=== PATIENT | male | born 1955 | race Caucasian/White ===

== ENCOUNTER → 2017-11-22 | Outpatient (CLI) | payer OTHER ==
[2016-02-01 16:39] VITALS: BMI 41.0
[~2017-11-22] MED LIST: ADV100/50 INH; ADV250/50 INH; ALB17R INH; ALB18R INH; ALB6.7R INH; ASPI-764 PO; AUG500 PO; AZI250 PO; BACL-1 PO; BENZ100C26 PO; CEP500 PO; CICL6.1H7 IH; CYC10 PO; CYCL10TA29 PO; DEPRESSION MED PO; DIAZ-1 PO; DICL-195 PO; DOCU-416 PO; DUL30 PO; DULERAPT INH; DULO60CA56 PO; ENO40I SQ; ESC10 PO; ESZO2TAB30 PO; FEXO180T74 PO; FEXO30OR2 PO; FEXO30TA36 PO; FLU220R INH; FLUT12HF2 IH; GABA-490 PO; GUAI-225 PO; HYDR-2966 PO; HYDR-318 PO; HYDR-385 PO; IBU800 PO; IBUP-56 PO; KET10 PO; LEVO50TA80 PO; LEVO75TA73 PO; LOM PO; LOR5 PO; LOR5/325 PO; LOR75 PO; MET10 PO; METH4TAB57 PO; MON10 PO; MONT10TA PO; NOR10 PO; NORT10SO PO; OMEP20CA68 PO; ONDA4TAB PO; OXYC-865 PO; PANT40TA65 PO; PER PO; PRAV40TA78 PO; PRE5 PO; PROM5SYR PO; RIV10 PO; TAMS0.4C70 PO; THYROID MED PO; TRAM-420 PO; TRAM100T21 PO; cholesterol pill
--- NOTE | 2017-11-22 10:43 | EKG ---
FACILITY: [facility] [place] PATIENT NAME: STEPHANIE MARTINEZ : [id number] MR: [id number] V: [id number] EXAM DATE: ORDERING PHYSICIAN: THADDEUS JONES TECHNOLOGIST: Marquise Oswald Reason : PREOP Blood Pressure : / mmHG Vent. Rate : 098 BPM Atrial Rate : 098 BPM P-R Int : 142 ms QRS Dur : 090 ms QT Int : 354 ms P-R-T Axes : 066 021 035 degrees QTc Int : 451 ms Normal sinus rhythm Normal ECG When compared with ECG of 18-SEP-2016 15:11, No significant change was found Confirmed by MICHELLE KIDD ([id number]) on 11/22/2017 1:35:34 PM Referred By: ROBERT Confirmed By:MICHELLE KIDD
== END ==
LOC: CARD 10:20
PROVIDERS: ATTEND Anesthesiology
DX: Z01.810 Encounter for preprocedural cardiovascular examination (principal); S43.431A Superior glenoid labrum lesion of right shoulder, initial encounter
CPT/HCPCS: 93005

== ENCOUNTER 2017-12-11 11:35 | Emergency (ER) | payer OTHER ==
[2016-02-01 16:39] VITALS: Wt 122.5 kg
[2017-12-11] MEDS ORDERED: GABA-549 PO (11:59)
--- NOTE | 2017-12-11 11:59 | ER Report ---
History and Physical Time Seen By MD: 11:55 Hx. of Stated Complaint: pt had shoulder surgery on . Has had a h/a since that time. Also notes L jaw pain. States it is getting worse. Does have some dental issues . Denies cp, sob HPI/ROS CHIEF COMPLAINT: Jaw pain HISTORY OF PRESENT ILLNESS: 63-year-old male returns emergency Department today with a complaint of jaw pain. Patient is been here before for an diagnosed with TMJ. Patient states that the pain is been coming and going a little worse today' s had this for approximate 4 years was on gabapentin last time which had some relief patient no longer taking it he is on pain medication for bicipital tear no additional complaints REVIEW OF SYSTEMS: Respiratory: No cough, no dyspnea. Cardiovascular: No chest pain, no palpitations. Gastrointestinal: No vomiting, no abdominal pain. Musculoskeletal: No back pain. Remainder of the 14 system rev: Yes Allergies: Coded Allergies: Sulfa (Sulfonamide Antibiotics) (Verified Allergy, Intermediate, hives, 12/11/17) nut - unspecified (Verified Allergy, Unknown, 12/11/17) watermelon (Verified Allergy, Unknown, 12/11/17) Home Meds Active Scripts Hydrocodone Bit/Acetaminophen (HYDROCODON-ACETAMINOPHEN 5-325) 1 Each Tablet, 1- 2 EACH PO Q6H, #30 TAB Prov:JAMIR LICONA 06/05/17 Reported Medications Ibuprofen (IBUPROFEN) 200 Mg Tablet, 4 TAB PO TID Y for PAIN, TAB 01/24/16 Nortriptyline Hcl (NORTRIPTYLINE HCL) 10 Mg Cap, 30 MG PO HS, CAP 11/04/15 Levothyroxine Sodium (LEVOTHYROXINE SODIUM) 75 Mcg Tablet, 75 MCG PO QDAY, TAB 11/04/15 Pantoprazole Sodium (PANTOPRAZOLE SODIUM) 40 Mg Tablet.dr, 40 MG PO BID, TAB.SR 05/01/13 Pravastatin Sodium (PRAVASTATIN SODIUM) 40 Mg Tablet, 40 MG PO HS 02/20/13 Montelukast Sodium (SINGULAIR) 10 Mg Tablet, 1 TAB PO QDAY TAKE ONE TABLET BY MOUTH EVERY DAY 02/20/13 Duloxetine Hcl (CYMBALTA) 60 Mg Capsule.dr, 60 MG PO QAM 02/20/13 Mometasone/Formoterol (DULERA 200 MCG/5 MCG INHALER) 13 Gm Inh, 2 PUFF INH BID 02/20/13 Discontinued Reported Medications Baclofen (BACLOFEN) 10 Mg Tablet, 10 MG PO TID, TAB 10/31/16 Discontinued Scripts Cyclobenzaprine Hcl (CYCLOBENZAPRINE HCL) 10 Mg Tablet, 5-10 MG PO TID Y for MUSCLE SPASMS, #15 TAB Prov:JAMIR LICONA LI-Hiren 06/05/17 Reviewed Nurses Notes: Yes Old Medical Records Reviewed: Yes Hx Smoking: No Smoking Status: Never Smoker Hx Substance Use Disorder: No Hx Alcohol Use: Yes (RARELY) Constitutional Vital Sign - Last 24 Hours 12/11/17 11:39 Temp 97.7 Pulse 84 Resp 20 Pulse Ox 92 O2 Delivery Room Air Physical Exam General appearance: Alert no distress. Respiratory: Chest is non tender, lungs are clear to auscultation. Cardiac: Regular rate and rhythm [ ] Jaw evaluation patient with some mild tenderness to palpation of the anterior part of the TMJ no clicking no abnormal tracking otherwise unremarkable pain reproducible DIFFERENTIAL DIAGNOSIS: After history and physical exam differential diagnosis was considered for TMJ Medical Decision Making ED Course/Re-evaluation ED Course Clinical course medical decision making 62-year-old male comes emergency room with obvious TMJ discomfort consistent with his prior presentations was started on gabapentin and ENT follow-up negative examination Decision to Disposition Date: Dec 11, 2017 Decision to Disposition Time: 11:58 Depart Departure Latest Vital Signs Vital Signs Date Time Temp Pulse Resp B/P (MAP) Pulse Ox O2 Delivery O2 Flow Rate FiO2 12/11/17 11:39 97.7 84 20 92 Room Air Impression: Primary Impression: TMJ (temporomandibular joint disorder) Condition: Condition Unchanged Disposition: HOME OR SELF-CARE Referrals: ART MORALES (PCP) CHRISTINA JOHNSON JR, MD 10 Days New Scripts Gabapentin (GABAPENTIN) 300 Mg Capsule 600 MG PO TID for 10 Days, #30 CAPSULE Prov: NEGRO SANTANA MD 12/11/17 Patient Instructions: Arthroscopic TMJ Procedure (DC) NEGRO SANTANA MD Dec 11, 2017 11:59
[2017-12-11 12:06] VITALS: BP 137/93
== END 2017-12-11 12:06 | disposition home or self-care (01) ==
LOC: ER 12:01
DX: M26.609 Unspecified temporomandibular joint disorder, unspecified side (principal)
CPT/HCPCS: 99283

== ENCOUNTER → 2018-02-26 | Outpatient (CLI) | payer OTHER ==
[2016-02-01 16:39] VITALS: BMI 41.0
[~2018-02-26] MED LIST changes: +GABA-549 PO
== END ==
LOC: LAB 14:46
PROVIDERS: ATTEND Nurse Practitioner Family
DX: E87.8 Other disorders of electrolyte and fluid balance, not elsewhere classified (principal); R73.01 Impaired fasting glucose; R53.81 Other malaise
CPT/HCPCS: 36415; 82040; 82247; 82310; 82374; 82435; 82565; 82947; 83036; 84075; 84132; 84155; 84295; 84443; 84450; 84460; 84520

== ENCOUNTER 2018-06-26 08:48 | Emergency (ER) | payer OTHER ==
[2016-02-01 16:39] VITALS: Wt 117.9 kg
[~2018-06-26 08:48] MED LIST changes: -LOSA100T69 PO; -METF-452 PO
--- NOTE | 2018-06-26 08:51 | ER Report ---
History and Physical Time Seen By MD: 09:12 HPI/ROS CHIEF COMPLAINT: Fall with head injury HISTORY OF PRESENT ILLNESS: Patient is a 62-year-old male who was loading furniture onto the bed of a 18 [employer] truck when his legs got tangled and he fell backwards striking his head. He denies any loss of consciousness but does report headache. He denies any neck pain or numbness or tingling to any extremities. He does complain of pain to the left shoulder but is able to range it. Also complains of left hip pain and again is able to range the hip. He denies any chest pain or shortness of breath denies any abdominal pain, nausea vomiting or diarrhea. Patient denies that he is taking any blood thinners at this time. REVIEW OF SYSTEMS: Respiratory: No cough, no dyspnea. Cardiovascular: No chest pain, no palpitations. Gastrointestinal: No vomiting, no abdominal pain. Musculoskeletal: Left shoulder, left hip pain Neurological: Headache Allergies: Coded Allergies: Sulfa (Sulfonamide Antibiotics) (Verified Allergy, Intermediate, hives, 06/26/18) nut - unspecified (Verified Allergy, Unknown, 06/26/18) watermelon (Verified Allergy, Unknown, 06/26/18) Home Meds Reported Medications Albuterol Sulfate (VENTOLIN HFA) 18 Gm Inh, 1-2 PUFF INH 3-4XD, INH 06/26/18 Losartan Potassium (LOSARTAN POTASSIUM) 100 Mg Tablet, 100 MG PO QDAY 06/26/18 Gabapentin (GABAPENTIN) 300 Mg Capsule, 300 MG PO DAILY, CAPSULE 06/26/18 Metformin Hcl (METFORMIN HCL) 1,000 Mg Tablet, 1 TAB PO QDAY, TAB 06/26/18 Levothyroxine Sodium (LEVOTHYROXINE SODIUM) 75 Mcg Tablet, 88 MCG PO QDAY, TAB 06/26/18 Nortriptyline Hcl (NORTRIPTYLINE HCL) 10 Mg Cap, 30 MG PO HS, CAP 11/04/15 Pantoprazole Sodium (PANTOPRAZOLE SODIUM) 40 Mg Tablet.dr, 40 MG PO BID, TAB.SR 05/01/13 Pravastatin Sodium (PRAVASTATIN SODIUM) 40 Mg Tablet, 40 MG PO HS 02/20/13 Montelukast Sodium (SINGULAIR) 10 Mg Tablet, 1 TAB PO QDAY TAKE ONE TABLET BY MOUTH EVERY DAY 6/14/13 Duloxetine Hcl (CYMBALTA) 60 Mg Capsule.dr, 60 MG PO QAM 02/20/13 Mometasone/Formoterol (DULERA 200 MCG/5 MCG INHALER) 13 Gm Inh, 2 PUFF INH BID 02/20/13 Discontinued Reported Medications Ibuprofen (IBUPROFEN) 200 Mg Tablet, 4 TAB PO TID PRN for PAIN, TAB 01/24/16 Levothyroxine Sodium (LEVOTHYROXINE SODIUM) 75 Mcg Tablet, 75 MCG PO QDAY, TAB 11/04/15 Discontinued Scripts Gabapentin (GABAPENTIN) 300 Mg Capsule, 600 MG PO TID for 10 Days, #30 CAPSULE Prov:NEGRO SANTANA MD 12/11/17 Hydrocodone Bit/Acetaminophen (HYDROCODON-ACETAMINOPHEN 5-325) 1 Each Tablet, 1- 2 EACH PO Q6H, #30 TAB Prov:JAMIR LICONA 06/05/17 Past Medical/Surgical History Past medical history significant for hypothyroidism, gastroesophageal reflux disease, hypercholesterolemia, reactive airways disease Hx Smoking: No Smoking Status: Never Smoker Hx Substance Use Disorder: No Hx Alcohol Use: Yes (RARELY) Constitutional Vital Sign - Last 24 Hours 06/26/18 06/26/18 06/26/18 06/26/18 08:54 08:55 09:03 09:18 Temp 98.1 Pulse 87 86 81 Resp 16 B/P (MAP) 147/83 (104) 147/83 Pulse Ox 94 94 93 O2 Delivery Room Air 06/26/18 06/26/18 06/26/18 06/26/18 09:48 09:53 10:08 10:13 Pulse 83 84 86 78 Pulse Ox 96 95 96 95 06/26/18 10:28 Pulse 79 Resp 16 B/P (MAP) 138/68 (91) Pulse Ox 95 Physical Exam General Appearance: The patient is alert, has no immediate need for airway protection and no signs of toxicity. Eyes: Pupils equal and round no pallor or injection. ENT, Mouth: Mucous membranes are moist. Cervical spine cleared using Nexus criteria and normal range of motion without pain in all axial directions and rotation Respiratory: There are no retractions, lungs are clear to auscultation. Cardiovascular: Regular rate and rhythm. Gastrointestinal: Abdomen is soft and non tender, no masses, bowel sounds normal. Neurological: GCS is 15, awake alert no numbness or tingling noted Skin: Warm and dry, no rashes. Musculoskeletal: Neck is supple non tender. Extremities are nontender, nonswollen and have full range of motion. Medical Decision Making EKG/Imaging Imaging FACILITY: [facility] [place] PATIENT NAME: Roscoe Santiago : 1955 MR: [id number] V: [id number] EXAM DATE: ORDERING PHYSICIAN: VIVIAN JONES TECHNOLOGIST: [facility] Patient: Roscoe Santiago : 1955 Visit/Account:[id number] Date of Sevice: 06/26/2018 Exam type: HIP LEFT History: fall Comparison: None. Findings: Two views of the left hip demonstrates no evidence of acute fracture or dislocation. No significant arthritic change identified in the hip joints. IMPRESSION: 1. Two views the left hip demonstrate no evidence of acute fracture or dislocation Report Dictated By: Yumiko Hdez MD at 06/26/2018 10:06 AM Report E-Signed By: Yumiko Hdez MD at 06/26/2018 10:07 AM WSN:[email or web address] FACILITY: [facility] [place] PATIENT NAME: Roscoe Santiago : 1955 MR: [id number] V: [id number] EXAM DATE: [id number] ORDERING PHYSICIAN: VIVIAN JONES TECHNOLOGIST: [facility] Patient: Roscoe Santiago : 1955 Visit/Account:[id number] Date of Sevice: 06/26/2018 EXAMINATION: CT Head without intravenous contrast HISTORY: Trauma. TECHNIQUE: Axial images were obtained from the skull base to the vertex without intravenous contrast. Sagittal and coronal reformatted images are also submitted. One of the following dose optimization techniques was utilized in the performance of this exam: Automated exposure control; adjustment of the mA and/or kV according to the patient's size; or use of an iterative reconstruction technique. Specific details can be referenced in the facility's radiology CT exam operational policy. COMPARISON: Brain MRI dated 10/29/2016. Noncontrast head CT dated 05/26/2014. FINDINGS: Brain volume: Normal. Ventricles: Negative. Acute ischemic changes: None. Hemorrhage: None. Masses / edema: None. Parrish-white: Negative. White matter: Negative. Vessels: Carotid siphon calcifications. Normal density in the dural venous sinuses. Extra-axial: Negative. Calvarium / skull base: Negative. Visualized sinuses / orbits: Postop endoscopic sinus surgery with mild to moderate mucosal thickening in the ethmoid cavities and maxillary sinuses. Multiple cavities and periapical lucencies in the maxillary teeth. IMPRESSION: 1. No acute intracranial abnormality. 2. Postop endoscopic sinus surgery with mild to moderate mucosal thickening in the ethmoid cavities and maxillary sinuses. 3. Multiple cavities and periapical lucencies in the maxillary teeth. Report Dictated By: Gavin Gary MD at 06/26/2018 9:52 AM Report E-Signed By: Gavin Gary MD at 06/26/2018 9:57 AM WSN:[email or web address] FACILITY: [facility] [place] PATIENT NAME: Roscoe Santiago : 1955 MR: [id number] V: [id number] EXAM DATE: [id number] ORDERING PHYSICIAN: VIVIAN JONES TECHNOLOGIST: [facility] Patient: Roscoe Santiago : 1955 Visit/Account:[id number] Date of Sevice: 06/26/2018 Exam type: SHOULDER MIN 2 VIEWS LEFT History: fall Comparison: None. Findings: Two views of the left shoulder demonstrate no evidence of acute fracture or dislocation. There is no evidence of a left AC joint separation. IMPRESSION: 1. Two views left shoulder reveal no evidence of acute fracture or dislocation Report Dictated By: Yumiko Hdez MD at 06/26/2018 10:05 AM Report E-Signed By: Yumiko Hdez MD at 06/26/2018 10:06 AM WSN:[email or web address] Ankle XR-Neg ED Course/Re-evaluation ED Course 06/26/2018 9:43:39 am At this time will be to CT the head we will also x-ray left hip and left shoulder. Patient was offered pain medication but he refused at this time. Decision to Disposition Date: Jun 26, 2018 Decision to Disposition Time: 10:35 Depart Departure Latest Vital Signs Vital Signs Date Time Temp Pulse Resp B/P (MAP) Pulse Ox O2 Delivery O2 Flow Rate FiO2 06/26/18 10:28 79 16 138/68 (91) 95 06/26/18 08:55 98.1 Room Air Impression: Primary Impression: Head injury Condition: Improved Disposition: HOME OR SELF-CARE Referrals: ART MORALES (PCP) For your next routine health maintenance exam Patient Instructions: Head Injury (DC) Problem Qualifiers Primary Impression: Head injury Encounter type: initial encounter Qualified Codes: S09.90XA - Unspecified injury of head, initial encounter VIVIAN JONES MD Jun 26, 2018 08:51
[2018-06-26] MEDS ORDERED: METF-452 PO (09:01)
[2018-06-26] MEDS ORDERED: LEVO75TA73 PO (09:01)
[2018-06-26] MEDS ORDERED: LOSA100T69 PO (09:01)
[2018-06-26] MEDS ORDERED: ALB18R INH (09:01)
[2018-06-26] MEDS ORDERED: GABA-549 PO (09:01)
--- NOTE | 2018-06-26 10:01 | RADIOLOGY IMAGING REPORT ---
FACILITY: [facility] PATIENT NAME: Roscoe Santiago : 1955 MR: [id number] V: [id number] EXAM DATE: ORDERING PHYSICIAN: VIVIAN JONES TECHNOLOGIST: [facility] Patient: Roscoe Santiago : 1955 Visit/Account:[id number] Date of Sevice: 06/26/2018 EXAMINATION: CT Head without intravenous contrast HISTORY: Trauma. TECHNIQUE: Axial images were obtained from the skull base to the vertex without intravenous contrast . Sagittal and coronal reformatted images are also submitted. One of the following dose optimization techniques was utilized in the performance of this exam: Autom ated exposure control; adjustment of the mA and/or kV according to the patient's size; or use of an i terative reconstruction technique. Specific details can be referenced in the facility's radiology C T exam operational policy. COMPARISON: Brain MRI dated 10/29/2016. Noncontrast head CT dated 05/26/2014. FINDINGS: Brain volume: Normal. Ventricles: Negative. Acute ischemic changes: None. Hemorrhage: None. Masses / edema: None. Parrish-white: Negative. White matter: Negative. Vessels: Carotid siphon calcifications. Normal density in the dural venous sinuses. Extra-axial: Negative. Calvarium / skull base: Negative. Visualized sinuses / orbits: Postop endoscopic sinus surgery with mild to moderate mucosal thickenin g in the ethmoid cavities and maxillary sinuses. Multiple cavities and periapical lucencies in the ma xillary teeth. IMPRESSION: 1. No acute intracranial abnormality. 2. Postop endoscopic sinus surgery with mild to moderate mucosal thickening in the ethmoid cavities a nd maxillary sinuses. 3. Multiple cavities and periapical lucencies in the maxillary teeth. Report Dictated By: Gavin Gary MD at 06/26/2018 9:52 AM Report E-Signed By: Gavin Gary MD at 06/26/2018 9:57 AM WSN:[email or web address]
--- NOTE | 2018-06-26 10:10 | RADIOLOGY IMAGING REPORT ---
[place] [facility] [place]: Roscoe Santiago : 1955 MR: [id number] V: [id number] EXAM DATE: ORDERING PHYSICIAN: VIVIAN JONES TECHNOLOGIST: Location: [facility] Patient: Roscoe Santiago : 1955 Visit/Account:[id number] Date of Sevice: 06/26/2018 Exam type: SHOULDER MIN 2 VIEWS LEFT History: fall Comparison: None. Findings: Two views of the left shoulder demonstrate no evidence of acute fracture or dislocation. There is no evidence of a left AC joint separation. IMPRESSION: 1. Two views left shoulder reveal no evidence of acute fracture or dislocation Report Dictated By: Yumiko Hdez MD at 06/26/2018 10:05 AM Report E-Signed By: Yumiko Hdez MD at 06/26/2018 10:06 AM WSN:[email or web address]
--- NOTE | 2018-06-26 10:11 | RADIOLOGY IMAGING REPORT ---
FACILITY: [facility] PATIENT NAME: Roscoe Santiago : 1955 MR: [id number] V: [id number] EXAM DATE: ORDERING PHYSICIAN: VIVIAN JONES TECHNOLOGIST: Location: [facility] [place] Patient: Roscoe Santiago : 1955 Visit/Account:[id number] Date of Sevice: 06/26/2018 Exam type: HIP LEFT History: fall Comparison: None. Findings: Two views of the left hip demonstrates no evidence of acute fracture or dislocation. No significant arthritic change identified in the hip joints. IMPRESSION: 1. Two views the left hip demonstrate no evidence of acute fracture or dislocation Report Dictated By: Yumiko Hdez MD at 06/26/2018 10:06 AM Report E-Signed By: Yumiko Hdez MD at 06/26/2018 10:07 AM WSN:[email or web address]
[2018-06-26 10:28] VITALS: BP 138/68
--- NOTE | 2018-06-26 10:31 | RADIOLOGY IMAGING REPORT ---
FACILITY: [facility] PATIENT NAME: Roscoe Santiago : 1955 MR: [id number] V: [id number] EXAM DATE: ORDERING PHYSICIAN: VIVIAN JONES TECHNOLOGIST: Location: [facility] Patient: Roscoe Santiago : 1955 Visit/Account:[id number] Date of Sevice: 06/26/2018 Exam type: ANKLE 3 VIEW MIN LEFT History: Left ankle pain status post fall Comparison: Right ankle April 10, 2015 and left ankle February 08, 2007. Findings: Three views of the left ankle reveal no evidence of acute fracture or dislocation. The ankle mortise appears intact IMPRESSION: 1. No evidence of acute fracture-dislocation involving the left ankle Report Dictated By: Yumiko Hdez MD at 06/26/2018 10:25 AM Report E-Signed By: Yumiko Hdez MD at 06/26/2018 10:27 AM WSN:[email or web address]
== END 2018-06-26 10:48 | disposition home or self-care (01) ==
LOC: ER 08:51
DX: S09.90XA Unspecified injury of head, initial encounter (principal)
CPT/HCPCS: 70450; 99284

== ENCOUNTER → 2018-06-26 | Outpatient (CLI) | payer OTHER ==
[2016-02-01 16:39] VITALS: BMI 41.0
[~2018-06-26] MED LIST changes: +LOSA100T69 PO; +METF-452 PO
== END ==
LOC: AMB 08:30
PROVIDERS: ATTEND Nurse Practitioner
DX: H53.8 Other visual disturbances (principal); R51 Headache; W17.89XA Other fall from one level to another, initial encounter; Y92.214 College as the place of occurrence of the external cause
CPT/HCPCS: A0425; A0429

== ENCOUNTER → 2018-09-13 | Outpatient (CLI) | payer OTHER ==
[2016-02-01 16:39] VITALS: BMI 41.0
[~2018-09-13] MED LIST changes: +LOSA100T75 PO; +METF-452 PO
[2018-09-13 10:58] LABS: LDL CHOLESTEROL 59 mg/dl
== END ==
LOC: LAB 09:54
PROVIDERS: ATTEND Nurse Practitioner Family
DX: Z00.00 Encounter for general adult medical examination without abnormal findings (principal)
CPT/HCPCS: 36415; 82040; 82247; 82306; 82310; 82374; 82435; 82465; 82565; 82607; 82947; 83036; 83718; 84075; 84132; 84153; 84155; 84295; 84443; 84450; 84460; 84478; 84520; 85027

== ENCOUNTER 2018-10-12 12:55 | Emergency (ER) | payer OTHER ==
[2016-02-01 16:39] VITALS: Wt 113.4 kg
[2018-10-12 12:58] VITALS: BP 132/83
[2018-10-12] MEDS ORDERED: predniSONE 20 MG TAB PO ONE (13:10)
[2018-10-12] MEDS ORDERED: diphenhydrAMINE 25 MG CAP PO ONE (13:10)
[2018-10-12] MEDS ORDERED: FAMOTIDINE 20 MG TAB PO ONE (13:10)
[2018-10-12] MEDS ORDERED: CYPR4TAB5 PO (13:22)
[2018-10-12] MEDS ORDERED: PRED20TA6 PO (13:22)
[2018-10-12] MEDS ORDERED: FAMO20TA28 PO (13:22)
--- NOTE | 2018-10-12 13:22 | ER Report ---
History and Physical Time Seen By MD: 13:16 Hx. of Stated Complaint: rash of face/head x 1 week, tried benadryl, hydrocortisone cream, gold damon for itch without relief HPI/ROS CHIEF COMPLAINT: Rash to head for the last 10 days. HISTORY OF PRESENT ILLNESS: Patient is a 62-year-old male with past medical history significant for reflux and asthma. Also wears a BiPAP mask at nighttime. Over the past week he's noticed a red itchy burning rash that involves his scalp both sides ofhis ears and stops abruptly at his neck line. Denies any respiratory symptoms. Never had similar episodes. He denies any new exposures to chemicals or detergents but he does can wear a cloth-type mask for his BiPAP and also recently they obtained new "bamboo pillows". Patient just states that he presented because symptoms were getting worse and he is uncomfortable due to the burning and itching. REVIEW OF SYSTEMS: Respiratory: No cough, no dyspnea. Cardiovascular: No chest pain, no palpitations. Gastrointestinal: No vomiting, no abdominal pain. Skin: Rash to face Allergies: Coded Allergies: Sulfa (Sulfonamide Antibiotics) (Verified Allergy, Intermediate, hives, 10/12/18) nut - unspecified (Verified Allergy, Unknown, 10/12/18) watermelon (Verified Allergy, Unknown, 10/12/18) Home Meds Reported Medications Albuterol Sulfate (VENTOLIN HFA) 18 Gm Inh, 1-2 PUFF INH 3-4XD, INH 06/26/18 Losartan Potassium (LOSARTAN POTASSIUM) 100 Mg Tablet, 100 MG PO QDAY 06/26/18 Gabapentin (GABAPENTIN) 300 Mg Capsule, 300 MG PO DAILY, CAPSULE 06/26/18 Metformin Hcl (METFORMIN HCL) 1,000 Mg Tablet, 1 TAB PO QDAY, TAB 06/26/18 Levothyroxine Sodium (LEVOTHYROXINE SODIUM) 75 Mcg Tablet, 88 MCG PO QDAY, TAB 06/26/18 Nortriptyline Hcl (NORTRIPTYLINE HCL) 10 Mg Cap, 30 MG PO HS, CAP 11/04/15 Pantoprazole Sodium (PANTOPRAZOLE SODIUM) 40 Mg Tablet.dr, 40 MG PO BID, TAB.SR 05/01/13 Pravastatin Sodium (PRAVASTATIN SODIUM) 40 Mg Tablet, 40 MG PO HS 02/20/13 Montelukast Sodium (SINGULAIR) 10 Mg Tablet, 1 TAB PO QDAY TAKE ONE TABLET BY MOUTH EVERY DAY 02/20/13 Duloxetine Hcl (CYMBALTA) 60 Mg Capsule.dr, 60 MG PO QAM 02/20/13 Mometasone/Formoterol (DULERA 200 MCG/5 MCG INHALER) 13 Gm Inh, 2 PUFF INH BID 02/20/13 Past Medical/Surgical History Asthma, reflux disease Hx Smoking: No Smoking Status: Never Smoker Hx Substance Use Disorder: No Hx Alcohol Use: Yes (RARELY) Constitutional Vital Sign - Last 24 Hours 10/12/18 12:58 Temp 97.6 Pulse 88 Resp 18 B/P (MAP) 132/83 Pulse Ox 93 O2 Delivery Room Air Physical Exam General Appearance: [The patient is alert, has no immediate need for airway protection and no current signs of toxicity.] [ ] Eyes: Pupils equal and round no injection. Skin: Examination of the skin reveals a morbilliform rash with a few areas of excoriation around the back of the ears bilaterally. The rash extends to the vertex of the scalp and stops abruptly at the patient's neckline. No secondary signs of infection. Medical Decision Making ED Course/Re-evaluation ED Course Bleed patient with some type of contact dermatitis possibly related to the use of his BiPAP mask and or his new pillow. Plan will be treatment with both H1 and H2 blockers along with a short course of oral steroids. Decision to Disposition Date: Oct 12, 2018 Decision to Disposition Time: 13:19 Depart Departure Latest Vital Signs Vital Signs Date Time Temp Pulse Resp B/P (MAP) Pulse Ox O2 Delivery O2 Flow Rate FiO2 10/12/18 12:58 97.6 88 18 132/83 93 Room Air Impression: Primary Impression: Contact dermatitis Condition: Improved Disposition: HOME OR SELF-CARE Referrals: ART MORALES (PCP) Schedule a follow-up appointment in the next 7-14 days for reevaluation if rash persists. New Scripts Prednisone (PREDNISONE) 20 Mg Tablet 20 MG PO QDAY for 5 Days, #5 TAB 0 Refills First dose on 10/13/18 Prov: VIVIAN JONES MD 10/12/18 Famotidine (PEPCID) 20 Mg Tablet 20 MG PO BID, #20 TAB 0 Refills Prov: VIVIAN JONES MD 10/12/18 Cyproheptadine Hcl (CYPROHEPTADINE HCL) 4 Mg Tablet 4 MG PO Q8H for itching, #30 TAB 0 Refills Prov: VIVIAN JONES MD 10/12/18 Patient Instructions: Acute Rash (ED) Problem Qualifiers Primary Impression: Contact dermatitis Contact dermatitis type: allergic Contact dermatitis trigger: unspecified trigger Qualified Codes: L23.9 - Allergic contact dermatitis, unspecified cause VIVIAN JONES MD Oct 12, 2018 13:22
== END 2018-10-12 13:28 | disposition home or self-care (01) ==
LOC: ER 13:04
DX: L23.9 Allergic contact dermatitis, unspecified cause (principal)
CPT/HCPCS: 99283; J7512; Q0163

== ENCOUNTER 2018-10-21 16:35 | Emergency (ER) | payer OTHER ==
[2016-02-01 16:39] VITALS: Wt 113.4 kg
[~2018-10-21 16:35] MED LIST changes: +CYPR4TAB5 PO; +FAMO20TA28 PO; +PRED20TA6 PO
--- NOTE | 2018-10-21 16:48 | ER Report ---
History and Physical Time Seen By MD: 16:47 Hx. of Stated Complaint: chest pain started around 5:30 last night. pt reports it was a sharp pain, went away and then came back again today at 2:30 HPI/ROS CHIEF COMPLAINT: Chest pain, lightheadedness, palpitations HISTORY OF PRESENT ILLNESS: 62-year-old male patient presents to the emergency room with complaint of chest pain, lightheadedness and palpitations. Patient states the chest pain started yesterday. He states this seemed to get worse about 2:30 this afternoon. He states that he has had some shortness of breath but feels like he is very lightheaded especially when he stands up. Patient denies any nausea, vomiting or diarrhea. Patient states he feels like he has to work harder to breathe. He denies having any fevers or chills. He denies having any cough. He states he does not feel ill. Patient states pain seems to be across the bottom part of the chest. He states he feels worse with activity. He states he feels like the lightheadedness is significantly worse. He states there is nothing seems to make the pain better. REVIEW OF SYSTEMS: Respiratory: As noted above Cardiovascular: As noted above Gastrointestinal: No vomiting, no abdominal pain. Musculoskeletal: No back pain. Allergies: Coded Allergies: Sulfa (Sulfonamide Antibiotics) (Verified Allergy, Intermediate, hives, 10/12/18) nut - unspecified (Verified Allergy, Unknown, 10/12/18) watermelon (Verified Allergy, Unknown, 10/12/18) Home Meds Active Scripts Prednisone (PREDNISONE) 20 Mg Tablet, 20 MG PO QDAY for 5 Days, #5 TAB 0 Refills First dose on 10/13/18 Prov:VIVIAN JONES MD 10/12/18 Famotidine (PEPCID) 20 Mg Tablet, 20 MG PO BID, #20 TAB 0 Refills Prov:VIVIAN JONES MD 10/12/18 Cyproheptadine Hcl (CYPROHEPTADINE HCL) 4 Mg Tablet, 4 MG PO Q8H for itching, #30 TAB 0 Refills Prov:VIVIAN JONES MD 10/12/18 Reported Medications Albuterol Sulfate (VENTOLIN HFA) 18 Gm Inh, 1-2 PUFF INH 3-4XD, INH 06/26/18 Losartan Potassium (LOSARTAN POTASSIUM) 100 Mg Tablet, 100 MG PO QDAY 06/26/18 Gabapentin (GABAPENTIN) 300 Mg Capsule, 300 MG PO DAILY, CAPSULE 06/26/18 Metformin Hcl (METFORMIN HCL) 1,000 Mg Tablet, 1 TAB PO QDAY, TAB 06/26/18 Levothyroxine Sodium (LEVOTHYROXINE SODIUM) 75 Mcg Tablet, 88 MCG PO QDAY, TAB 06/26/18 Nortriptyline Hcl (NORTRIPTYLINE HCL) 10 Mg Cap, 30 MG PO HS, CAP 11/04/15 Pantoprazole Sodium (PANTOPRAZOLE SODIUM) 40 Mg Tablet.dr, 40 MG PO BID, TAB.SR 05/01/13 Pravastatin Sodium (PRAVASTATIN SODIUM) 40 Mg Tablet, 40 MG PO HS 02/20/13 Montelukast Sodium (SINGULAIR) 10 Mg Tablet, 1 TAB PO QDAY TAKE ONE TABLET BY MOUTH EVERY DAY 02/20/13 Duloxetine Hcl (CYMBALTA) 60 Mg Capsule.dr, 60 MG PO QAM 02/20/13 Mometasone/Formoterol (DULERA 200 MCG/5 MCG INHALER) 13 Gm Inh, 2 PUFF INH BID 02/20/13 Past Medical/Surgical History Patient has a past medical history of hyperlipidemia, hypertension, asthma, pneumonia, chest pain, diarrhea, reflux, cholecystitis, hiatal hernia, knee pain, fracture of right hand, back pain, vertigo, large tonsils, hypothyroidism, rare alcohol use, depression. Patient has a past medical history of vein stripping, sinus surgery 4, right rotator cuff surgery, left knee surgery, right knee surgery, microfracture left knee, right shoulder surgery, bowel obstruction. Patient has a family medical history of cancer, CAD, diabetes. Reviewed Nurses Notes: Yes Hx Smoking: No Smoking Status: Never Smoker Hx Substance Use Disorder: No Hx Alcohol Use: Yes (RARELY) Constitutional Vital Sign - Last 24 Hours 10/21/18 10/21/18 10/21/18 10/21/18 16:42 20:04 20:06 20:08 Temp 97.7 Pulse 165 77 86 86 Resp 20 20 20 20 B/P (MAP) 130/113 111/71 (84) 127/87 (100) 14/75 (55) Pulse Ox 96 93 90 O2 Delivery Room Air Room Air Room Air Room Air Physical Exam General Appearance: The patient is alert, has no immediate need for airway protection and no current signs of toxicity. Respiratory: Chest is non tender, lungs are clear to auscultation. Cardiac: regular rate and rhythm Gastrointestinal: Abdomen is soft and non tender, no masses, bowel sounds normal. Musculoskeletal: Neck: Neck is supple and non tender. Extremities have full range of motion and are non tender. Skin: No rashes or lesions. DIFFERENTIAL DIAGNOSIS: After history and physical exam differential diagnosis was considered for chest pain including but not limited to myocardial ischemia, pericarditis pulmonary embolus, chest wall pain, pleural inflammation and pulmonary infectious causes. Medical Decision Making Data Points Result Diagram: 10/21/18 1722 10/21/18 1722 Laboratory Hematology Test 10/21/18 17:22 10/21/18 18:54 10/21/18 20:37 Red Blood Count 4.83 M/uL (4.00-5.60) Mean Corpuscular Volume 91.5 fL (80.0-96.0) Mean Corpuscular Hemoglobin 30.6 pg (26.0-33.0) Mean Corpuscular Hemoglobin Concent 33.4 g/dL (32.0-36.0) Red Cell Distribution Width 13.0 % (11.5-14.5) Mean Platelet Volume 9.0 fL (7.2-11.1) Neutrophils (%) (Auto) 68.7 % (39.4-72.5) Lymphocytes (%) (Auto) 20.7 % (17.6-49.6) Monocytes (%) (Auto) 6.7 % (4.1-12.4) Eosinophils (%) (Auto) 3.1 % (0.4-6.7) Basophils (%) (Auto) 0.8 % (0.3-1.4) Nucleated RBC Relative Count (auto) 0.0 /100WBC Neutrophils # (Auto) 6.7 K/uL (2.0-7.4) Lymphocytes # (Auto) 2.0 K/uL (1.3-3.6) Monocytes # (Auto) 0.6 K/uL (0.3-1.0) Eosinophils # (Auto) 0.3 K/uL (0.0-0.5) Basophils # (Auto) 0.1 K/uL (0.0-0.1) Nucleated RBC Absolute Count (auto) 0.00 K/uL D-Dimer Quantitative (PE/DVT) 0.28 ug/ml (0-0.50) Sodium Level 138 mmol/L (137-145) Potassium Level 3.9 mmol/L (3.5-5.0) Chloride Level 105 mmol/L (98-107) Carbon Dioxide Level 25 mmol/L (22-30) Blood Urea Nitrogen 17 mg/dl (9-21) Creatinine 1.50 mg/dl (0.66-1.25) Glomerular Filtration Rate Calc 47.7 Random Glucose 102 mg/dl (75-110) Calcium Level 9.2 mg/dl (8.4-10.2) Total Bilirubin 0.5 mg/dl (0.2-1.3) Aspartate Amino Transf (AST/SGOT) 18 U/L (0-35) Alanine Aminotransferase (ALT/SGPT) 33 U/L (0-56) Alkaline Phosphatase 77 U/L (0-126) Total Protein 7.1 g/dl (6.3-8.2) Albumin 4.1 g/dl (3.5-5.0) Urine Color Yellow Urine Clarity Clear Urine pH 5.0 pH (4.8-9.5) Urine Specific [place] 1.020 Urine Protein Negative mg/dL (NEGATIVE) Urine Glucose (UA) Negative mg/dL (NEGATIVE) Urine Ketones Negative mg/dL (NEGATIVE) Urine Blood Negative (NEGATIVE) Urine Nitrite Negative (NEGATIVE) Urine Bilirubin Negative (NEGATIVE) Urine Urobilinogen Negative mg/dL (0.2-1.9) Urine Leukocyte Esterase Negative (NEGATIVE) Urine RBC None /HPF (0-2/HPF) Urine WBC 1 /HPF (0-5/HPF) Urine Squamous Epithelial Cells Few /LPF (</=FEW) Urine Bacteria Negative /HPF (NONE-FEW) Urine Mucus None /HPF (NONE-FEW) Troponin I < 0.012 ng/ml Chemistry Test 10/21/18 17:22 10/21/18 18:54 10/21/18 20:37 White Blood Count 9.7 k/uL (4.5-11.0) Red Blood Count 4.83 M/uL (4.00-5.60) Hemoglobin 14.8 g/dL (14.0-18.0) Hematocrit 44.2 % (42.0-52.0) Mean Corpuscular Volume 91.5 fL (80.0-96.0) Mean Corpuscular Hemoglobin 30.6 pg (26.0-33.0) Mean Corpuscular Hemoglobin Concent 33.4 g/dL (32.0-36.0) Red Cell Distribution Width 13.0 % (11.5-14.5) Platelet Count 235 K/uL (150-450) Mean Platelet Volume 9.0 fL (7.2-11.1) Neutrophils (%) (Auto) 68.7 % (39.4-72.5) Lymphocytes (%) (Auto) 20.7 % (17.6-49.6) Monocytes (%) (Auto) 6.7 % (4.1-12.4) Eosinophils (%) (Auto) 3.1 % (0.4-6.7) Basophils (%) (Auto) 0.8 % (0.3-1.4) Nucleated RBC Relative Count (auto) 0.0 /100WBC Neutrophils # (Auto) 6.7 K/uL (2.0-7.4) Lymphocytes # (Auto) 2.0 K/uL (1.3-3.6) Monocytes # (Auto) 0.6 K/uL (0.3-1.0) Eosinophils # (Auto) 0.3 K/uL (0.0-0.5) Basophils # (Auto) 0.1 K/uL (0.0-0.1) Nucleated RBC Absolute Count (auto) 0.00 K/uL D-Dimer Quantitative (PE/DVT) 0.28 ug/ml (0-0.50) Glomerular Filtration Rate Calc 47.7 Calcium Level 9.2 mg/dl (8.4-10.2) Total Bilirubin 0.5 mg/dl (0.2-1.3) Aspartate Amino Transf (AST/SGOT) 18 U/L (0-35) Alanine Aminotransferase (ALT/SGPT) 33 U/L (0-56) Alkaline Phosphatase 77 U/L (0-126) Total Protein 7.1 g/dl (6.3-8.2) Albumin 4.1 g/dl (3.5-5.0) Urine Color Yellow Urine Clarity Clear Urine pH 5.0 pH (4.8-9.5) Urine Specific [place] 1.020 Urine Protein Negative mg/dL (NEGATIVE) Urine Glucose (UA) Negative mg/dL (NEGATIVE) Urine Ketones Negative mg/dL (NEGATIVE) Urine Blood Negative (NEGATIVE) Urine Nitrite Negative (NEGATIVE) Urine Bilirubin Negative (NEGATIVE) Urine Urobilinogen Negative mg/dL (0.2-1.9) Urine Leukocyte Esterase Negative (NEGATIVE) Urine RBC None /HPF (0-2/HPF) Urine WBC 1 /HPF (0-5/HPF) Urine Squamous Epithelial Cells Few /LPF (</=FEW) Urine Bacteria Negative /HPF (NONE-FEW) Urine Mucus None /HPF (NONE-FEW) Troponin I < 0.012 ng/ml Coagulation Test 10/21/18 17:22 D-Dimer Quantitative (PE/DVT) 0.28 ug/ml Urinalysis Test 10/21/18 18:54 Urine Color Yellow Urine Clarity Clear Urine pH 5.0 pH (4.8-9.5) Urine Specific [place] 1.020 Urine Protein Negative mg/dL (NEGATIVE) Urine Glucose (UA) Negative mg/dL (NEGATIVE) Urine Ketones Negative mg/dL (NEGATIVE) Urine Blood Negative (NEGATIVE) Urine Nitrite Negative (NEGATIVE) Urine Bilirubin Negative (NEGATIVE) Urine Urobilinogen Negative mg/dL (0.2-1.9) Urine Leukocyte Esterase Negative (NEGATIVE) Urine RBC None /HPF (0-2/HPF) Urine WBC 1 /HPF (0-5/HPF) Urine Squamous Epithelial Cells Few /LPF (</=FEW) Urine Bacteria Negative /HPF (NONE-FEW) Urine Mucus None /HPF (NONE-FEW) EKG/Imaging EKG Interpretation 12 lead EKG done at 1637: Rhythm: SVT with a ventricular rate of 161 bpm [place]: normal QRS: normal ST segments: Nonspecific ST abnormality 12 lead EKG done at 2012: Rhythm: normal sinus rhythm [place]: normal QRS: normal ST segments: normal Imaging EXAMINATION: Chest 2 Views HISTORY: Chest pain. COMPARISON: 09/18/2016. FINDINGS: The lungs are clear. No focal consolidation or pleural fluid. No pneumothorax. Normal cardiomediastinal silhouette, with normal heart size and pulmonary vascularity. Visualized osseous structures are unremarkable. IMPRESSION: No evidence of acute cardiopulmonary disease. Report Dictated By: Rolando Moran MD at 10/21/2018 5:27 PM Report E-Signed By: Rolando Moran MD at 10/21/2018 5:28 PM ED Course/Re-evaluation ED Course Patient submitted in exam room, history and physical were obtained. Differential diagnoses were considered. On examination lungs are clear, heart is his regular and abdomen soft nontender. As I was talking the patient getting history patient was tachycardia longer 160 bpm. During my examination when I listened heart sounds heart sounds seemed much lower than 160 bpm. As I looked at him monitor the patient at that time had converted to a normal sinus rhythm and was down in the 80s. A CBC, CMP, troponin, EKG, chest x-ray were done. Labs were unremarkable. Patient had an elevated creatinine 1.5 but a negative troponin. Due to the chest pain I decided to go ahead and repeated the troponin. Patient had remained in a normal sinus rhythm and a repeat EKG was done which confirmed that. Repeat troponin was negative. I did get the patient opted he felt very dizzy at that time. I had them do orthostatic blood pressures which were ne gative. I discussed the findings with the patient and his . We'll go ahead and discharge him home this time. Is my recommendation that he get plenty of rest, increase fluid intake, take it easy tomorrow. I would like him to follow- up with urology as he has stated that has difficult time with urination especially in the morning. Also he will have difficult time getting urine started, however after he urinates initially if he drinks anything then he will have to urinate again. I do wonder if he is having some incomplete emptying of the bladder. I discussed the patient is and they verbalized understanding and agreement with plan. Decision to Disposition Date: Oct 21, 2018 Decision to Disposition Time: 21:38 Depart Departure Latest Vital Signs Vital Signs Date Time Temp Pulse Resp B/P (MAP) Pulse Ox O2 Delivery O2 Flow Rate FiO2 10/21/18 20:08 86 20 14/75 (55) 90 Room Air 10/21/18 16:42 97.7 Impression: Primary Impression: Chest pain Additional Impressions: SVT (supraventricular tachycardia) Lightheadedness Elevated serum creatinine Condition: Improved Disposition: HOME OR SELF-CARE Referrals: ART MORALES (PCP) Patient Instructions: Chest Pain (ED) Additional Instructions: Increase fluid intake. Get plenty of rest. Follow up with Urology due to the difficulty with urinary stream and also elevated Creatinine. Return to the ER if condition worsens. Continue with your current medications. Limit activity by how you are feeling. Get up slowly to help with the lightheadedness. Problem Qualifiers Primary Impression: Chest pain Chest pain type: other chest pain Qualified Codes: R07.89 - Other chest pain JAMES NIX Oct 21, 2018 16:48
[2018-10-21] MEDS ORDERED: NS(*) 0.9% 1000 ML BAG 1,000 ML IV ONE (16:56)
[2018-10-21] MEDS ORDERED: ASPIRIN 81 MG CHEW PO ONE (17:00)
--- NOTE | 2018-10-21 17:32 | RADIOLOGY IMAGING REPORT ---
FACILITY: [facility] [place] PATIENT NAME: Roscoe Santiago : 1955 MR: [id number] V: [id number] EXAM DATE: ORDERING PHYSICIAN: JAMES NIX TECHNOLOGIST: Location: [facility] Patient: Roscoe Santiago : 1955 Visit/Account:[id number] Date of Sevice: 10/21/2018 EXAMINATION: Chest 2 Views HISTORY: Chest pain. COMPARISON: 09/18/2016. FINDINGS: The lungs are clear. No focal consolidation or pleural fluid. No pneumothorax. Normal cardiomedias tinal silhouette, with normal heart size and pulmonary vascularity. Visualized osseous structures ar e unremarkable. IMPRESSION: No evidence of acute cardiopulmonary disease. Report Dictated By: Rolando Moran MD at 10/21/2018 5:27 PM Report E-Signed By: Rolando Moran MD at 10/21/2018 5:28 PM WSN:[id number]
--- NOTE | 2018-10-21 17:35 | EKG ---
FAC[place] [facility] [place]IENT NAME: STEPHANIE MARTINEZ : [id number] MR: [id number] V: [id number] EXAM DATE: ORDERING PHYSICIAN: JAMES NIX TECHNOLOGIST: VICTOR HUGO Oswald Reason : CP Blood Pressure : / mmHG Vent. Rate : 161 BPM Atrial Rate : 166 BPM P-R Int : 000 ms QRS Dur : 082 ms QT Int : 302 ms P-R-T Axes : 000 -54 037 degrees QTc Int : 494 ms Supraventricular tachycardia Left anterior fascicular block Nonspecific ST abnormality Abnormal ECG When compared with ECG of 22-NOV-2017 10:30, Vent. rate has increased BY 63 BPM Left anterior fascicular block is now present ST now depressed in Anterior leads Confirmed by Manuel Summers ([id number]) on 10/21/2018 9:48:47 PM Referred By: KAREN Confirmed By:Manuel Larkin
[2018-10-21 17:57] LABS: PLATELET COUNT, AUTOMATED 235 K/uL (150-450)
[2018-10-21 20:08] VITALS: BP 114/75
--- NOTE | 2018-10-21 20:23 | EKG ---
FACILITY: [facility] PATIENT NAME: STEPHNAIE MARTINEZ : [id number] MR: [id number] V: [id number] EXAM DATE: ORDERING PHYSICIAN: JAMES NIX TECHNOLOGIST: EBEN Test Reason : CP Blood Pressure : / mmHG Vent. Rate : 080 BPM Atrial Rate : 080 BPM P-R Int : 146 ms QRS Dur : 082 ms QT Int : 404 ms P-R-T Axes : 006 003 032 degrees QTc Int : 465 ms Normal sinus rhythm Normal ECG When compared with ECG of 21-OCT-2018 16:37, Vent. rate has decreased BY 81 BPM QRS axis shifted right Confirmed by Manuel Summers ([id number]) on 10/21/2018 9:49:15 PM Referred By: Confirmed By:Manuel Larkin
== END 2018-10-21 21:52 | disposition home or self-care (01) ==
LOC: ER 17:04
DX: I47.1 Supraventricular tachycardia (principal); R42 Dizziness and giddiness; R07.9 Chest pain, unspecified
CPT/HCPCS: 36415; 71046; 81001; 84484; 85025; 85379; 93005; 96360; 96361; 99284; J7030; 82040; 82247; 82310; 82374; 82435; 82565; 82947; 84075; 84132; 84155; 84295; 84450; 84460; 84520

== ENCOUNTER → 2018-11-07 | Outpatient (CLI) | payer OTHER ==
[2016-02-01 16:39] VITALS: BMI 41.0
[~2018-11-07] MED LIST changes: +REGADENOSON 0.4 MG/5 ML SYR ONE
--- NOTE | 2018-11-07 20:00 | RT STRESS TEST REPORT ---
FACILITY: [facility] PATIENT NAME: STEPHANIE MARTINEZ : [id number] MR: [id number] V: [id number] EXAM DATE: ORDERING PHYSICIAN: ART MORALES TECHNOLOGIST: Jose Acquisition Time: 2018-11-07 14:39:54 Total Exercise Time: 00:01:00 Test Indications: Chest Discomfort Medications: SEE LIST Protocol: LEXISCAN Max HR: 100 BPM 62% of Pred: 160 BPM Max BP: 123/081 mmHG Max Work Load: 1.0 METS He had no chest pain or ST depression after the Lexiscan infusion. See the myoview images for details. Confirmed by FERNANDA ELIZABETH ([id number]) on 11/07/2018 8:00:27 PM Referred By: Overread By: FERNANDA ELIZABETH
--- NOTE | 2018-11-10 09:19 | RADIOLOGY IMAGING REPORT ---
FACILITY: [facility] - [place] PATIENT NAME: Roscoe Santiago : 1955 MR: [id number] V: [id number] EXAM DATE: ORDERING PHYSICIAN: ART MORALES TECHNOLOGIST: Location: [facility] Patient: Roscoe Santiago : 1955 Visit/Account:[id number] Date of Sevice: 11/07/2018 REGADENOSON (LEXISCAN) MYOCARDIAL PERFUSION IMAGING. EXAMINATION: Single isotope SPECT imaging with regadenoson infusion and gated SPECT imaging. DATE OF EXAMINATION: November 07, 2018. REQUESTING PHYSICIAN:ANDREW INDICATION: Chest discomfort PROCEDURE: After informed consent the patient received an intravenous injection of Tc-99m sestamibi followed at an appropriate time interval by rest imaging. The patient then subsequently received an intravenous infusion of 0.4 mg of regadenoson per protocol without complication. Resting heart rate was 81 bpm with a peak heart rate of 94 bpm. Blood pressure at rest was 123/81 and following infusi on was 112/66 . Baseline EKG demonstrates sinus rhythm. There were no EKG changes of ischemia follo wing infusion. Non-specific symptoms were reported. The patient then received an intravenous inject ion of Tc-99m sestamibi followed by stress imaging. DOSE of Tc-99m sestamibi (mCi): REST: 11.5 STRESS: 29.7 RAW DATA: Examination of the summed raw data revealed a good quality study. MYOCARDIAL PERFUSION: The tomographic images demonstrate normal myocardial perfusion study without e vidence of myocardial ischemia or infarct. GATED IMAGES: The gated images demonstrate normal LV function and wall motion with LVEF 68%. IMPRESSION: 1. Nondiagnostic ECG portion of Lexiscan stress test. 2. Normal myocardial perfusion study without evidence of myocardial ischemia or infarct 3. Normal LV systolic function and wall motion with LVEF 68% Report Dictated By: Hussein Yang at 11/10/2018 9:01 AM Report E-Signed By: Hussein Yang at 11/10/2018 9:12 AM WSN:[id number]
== END ==
LOC: NUC 04:21
PROVIDERS: ATTEND Nurse Practitioner Family
DX: R07.9 Chest pain, unspecified (principal); I10 Essential (primary) hypertension; R00.2 Palpitations; I47.1 Supraventricular tachycardia
CPT/HCPCS: 78452; 93017; A9500; J2785

== ENCOUNTER → 2019-01-28 | Outpatient (CLI) | payer OTHER ==
[2016-02-01 16:39] VITALS: BMI 41.0
[~2019-01-28] MED LIST changes: -REGADENOSON 0.4 MG/5 ML SYR ONE
== END ==
LOC: LAB 14:49
PROVIDERS: ATTEND Nurse Practitioner Family
DX: Z00.00 Encounter for general adult medical examination without abnormal findings (principal)
CPT/HCPCS: 36415; 82040; 82247; 82306; 82310; 82374; 82435; 82465; 82565; 82607; 82947; 83036; 83718; 84075; 84132; 84153; 84155; 84295; 84443; 84450; 84460; 84478; 84520; 85027

== ENCOUNTER → 2019-02-06 | Outpatient (CLI) | payer OTHER ==
[2016-02-01 16:39] VITALS: BMI 41.0
== END ==
LOC: US 02:02
PROVIDERS: ATTEND Internal Medicine
DX: I47.1 Supraventricular tachycardia (principal)
CPT/HCPCS: 93306

== ENCOUNTER → 2019-03-06 | Outpatient (CLI) | payer OTHER ==
[2016-02-01 16:39] VITALS: BMI 41.0
== END ==
LOC: LAB 10:45
PROVIDERS: ATTEND Nurse Practitioner Family
DX: R73.01 Impaired fasting glucose (principal); R53.81 Other malaise; E87.8 Other disorders of electrolyte and fluid balance, not elsewhere classified
CPT/HCPCS: 36415; 82040; 82247; 82310; 82374; 82435; 82565; 82947; 83036; 84075; 84132; 84155; 84295; 84443; 84450; 84460; 84520